=== PATIENT | female | born 1970 | race Caucasian/White ===

== ENCOUNTER 2019-05-10 12:35 | Inpatient (IN) ==
--- NOTE | 2019-05-10 13:14 | XRay Report ---
XR chest 2V PA/lateral HISTORY: 48 years-old Female pain s/p ercp ro perf acute upper abdominal pain status post ERCP COMPARISON: None available TECHNIQUE: PA and lateral views of the chest FINDINGS: Cardiac silhouette is upper limits of normal in size. Opacity of the right cardiophrenic angle sugges ts prominent epicardial fat pad. Postoperative changes of the right upper lung. No pneumothorax, larg e pleural effusion, overt pulmonary edema or focal airspace consolidation. Minimal scarring/atelectas is of the left lung base. The bones appear to be grossly intact. Surgical clips of the upper abdomen suggest cholecystectomy. IMPRESSION: No acute process. The above report was generated using voice recognition software. It may contain grammatical, syntax o r spelling errors. Electronically signed by: Hilario Webb M.D. 05/10/2019 1:12 PM
[2019-05-10] MEDS ORDERED: HYDROmorphone INJ 1 MG/ML SYRINGE IV STA (13:31)
--- NOTE | 2019-05-10 13:47 | XRay Report ---
XR KUB/Abdomen 1 view CLINICAL HISTORY: abdominal pain pain COMPARISON STUDY: No previous studies for comparison. FINDINGS: The soft tissues, psoas shadows, renal outlines and intestinal gas pattern appear normal. T here is no evidence for bowel obstruction. No abnormal abdominal calcifications are seen. IMPRESSION: Normal study. The above report was generated using voice recognition software. It may contain grammatical, syntax or spelling errors. Electronically signed by: Pietro Hansen M.D. 05/10/2019 1:45 PM
[2019-05-10 13:53] LABS: Basophils # (auto) 0.01 K/uL (0-0.2); Basophils % (auto) 0.1 %; Hematocrit (blood only) 39.9 % (37-47); Hemoglobin 13.6 g/dL (12.0-16.0); Immature Granulocytes # (auto) 0.02 K/uL (0.00-0.02); Immature Granulocytes % (auto) 0.2 %; Lymphocytes # (auto) 0.54 K/uL (1.2-3.4); Lymphocytes % (auto) 4.7 %; Mean Corpuscular Hemoglobin 31.1 pg (25-34); Mean Corpuscular Hgb Conc 34.1 g/dL (32-36); Mean Corpuscular Volume 91.3 fL (80-100); Mean Platelet Volume 9.4 fL (7.4-10.4); Monocytes # (auto) 0.18 K/uL (0.11-0.59); Monocytes % (auto) 1.6 %; Neutrophils # (auto) 10.83 K/uL (1.4-6.5); Neutrophils % (auto) 93.4 %; Platelet Count 218 K/uL (130-400); RDW Coefficient of Variation 12.6 % (11.5-14.5); RDW Standard Deviation 42.3 fL (36.4-46.3); Red Blood Count 4.37 M/uL (4.2-5.4); White Blood Count 11.58 K/uL (4.8-10.8)
[2019-05-10] MEDS ORDERED: ONDANSETRON INJ 2 MG/ML 2 ML VIAL IV PRN (14:01)
[2019-05-10 14:07] LABS: Albumin Level 3.6 gm/dl (3.4-5.0); BUN Creatinine Ratio 10.5 (10-20); Creatinine Clr Calc Pharmacy 105.6 ml/min; Est GFR (African American) 109.2; Est GFR (Non-African American) 94.3; Potassium 3.8 mmol/L (3.5-5.1)
--- NOTE | 2019-05-10 14:08 | History & Physical Report ---
Date of Service May 10, 2019 Assessment & Plan (1) S/P ERCP: Maria Esther Youssef is a 48 year old female who on 05/10/19 is s/p Endoscopic retrograde cholangiopancreatography (ERCP) to investigate common bile duct stone as outpatient by Dr. Riaz Hairston at [facility], and because of greater than expect abdominal pain symptoms, the patient was sent to emergency room at [facility]. (2) Abdominal pain: -as per the gastroenterology service Dr. Hairston patient should be on IV fluids of normal saline 150 cc/hr. Avoid lactate ringers solution due to magnesium hydroxide allergy as per Dr. Hairston -trend lipase and liver function enzymes -In the ED. Patient with upper abdominal pain. She reports that that the upper abdominal pain was after the ERCP and that previous to the ERCP the location of the pain was left sided abdomen. In the ED, Chest X ray and KUb were unremarkable. -pain control medications prn -antiemetics prn -will request formal inpatient gastroenterology consult to follow the patient with hospitalist medical service (3) Acquired hypothyroidism: -continue home dose levothyroxine 75 mcg (4) History of sarcoidosis: -diagnosed by surgical lung biopsy 09/22/09 DVT prophylaxis:SCDs My colleague Dr. Banerjee will be taking the patient as hospitalist starting on 05/11/19 History of Present Illness Primary Care Provider: Kalen Thomas PA-C Maria Esther Youssef is a 48 year old female who on 05/10/19 is s/p Endoscopic retrog rade cholangiopancreatography (ERCP) to investigate common bile duct stone as outpatient by Dr. Riaz Hairston at [facility], and because of greater than expect abdominal pain symptoms, the patient was sent to emergency room at [facility]. In the ED. Patient with upper abdominal pain. She reports that that the upper abdominal pain was after the ERCP and that previous to the ERCP the location of the pain was left sided abdomen. In the ED, Chest X ray and KUb were unremarkable. Patient does not have vomiting. Breathing on room air. No chest pain. No dizziness. No headache. No lightheadedness Allergies Allergy/AdvReac Type Severity Reaction Status Date / Time magnesium hydroxide Allergy Unknown swelling Verified 05/10/19 13:55 Home Medications Home Medications Medication Instructions Recorded Confirmed Type dicyclomine 20 mg PO TID PRN 05/10/19 05/10/19 History diphenhydramine HCl [Benadryl] 25 mg PO HS 05/10/19 05/10/19 History levothyroxine 75 mcg PO QAM 05/10/19 05/10/19 History melatonin 10 mg PO HS 05/10/19 05/10/19 History omeprazole 20 mg PO DAILY PRN 05/10/19 05/10/19 History Past Med/Surg History Medical History H/O: hysterectomy Surgical History H/O tubal ligation Social History Feels Safe at Home: Yes Review of Systems Review of Systems: All systems reviewed & are unremarkable except as noted in HPI & below Allergies: Patient reports allergies of magnesium hydroxide that lead to swelling Family History: denies Physical Exam Constitutional: cooperative Eyes: PERRL, conjunctivae normal, anicteric sclerae EOM intact bilaterally ENMT: external ear and nose normal, oropharynx normal Neck: normal visual inspection Respiratory: normal respiratory effort, lungs clear to auscultation Cardiovascular: RRR, no murmur, no edema Gastrointestinal (Abdomen): Inspection/Auscultation: normal bowel sounds Percussion/Palpation: abdomen soft upper epigastric are of pain not made worse by palpation Musculoskeletal: Head/Neck/Chest: normocephalic and head atraumatic Neurologic: PERRL, EOMI, accommodation nl, no face palsy, no dysarthria CN's II-XI intact bilaterally Psychiatric: A+Ox3, euthymic affect Results & Data Vital Signs (Past 12 Hours) Vital Signs Temp Pulse Resp BP Pulse Ox 05/10/19 12:43 36.7 C 75 18 115/55 L 96 Code Status & VTE Plan VTE Prophylaxis Plan VTE Prophylaxis will be ordered: Yes (1) Abdominal pain Abdominal location: upper abdomen, unspecified Qualified Code(s): R10.10 - Upper abdominal pain, unspecified
[2019-05-10 14:11] LABS: Bilirubin Direct 0.5 mg/dl (0-0.2); Bilirubin,Total 0.7 mg/dl (0.2-1); Total Protein 7.2 gm/dl (6.4-8.2)
--- NOTE | 2019-05-10 16:03 | Gastrointestinal Consultation ---
Date of Consultation May 10, 2019 Assessment & Plan (1) Abdominal pain: Abdominal pain may represent IBS or possibly mild post ERCP pancreatitis. IV hydration. Narcotic analgesics. LFTs, lipase tomorrow. Clear liquids po. Present on Admission?: Yes Supervising Physician Co-Signing Physician Notes Attending attestation I have seen, examined this patient, and agree with the findings and above by our mid-level provider RODO Frank, with the following additions -Pain after ERCP -doing well, no acute findings on Xray. -IVF, Pain control History of Present Illness Reason for Consultation: abdominal pain after ERCP Requesting Physician: Dr. Alves Attending Physician: Michael Alves MD History of Present Illness Ms. Maria Esther Youssef is a 48 yr old female with chronic abdominal pain who underwent EUS with findings of sludge in the bile ducts then ERCP today by Dr. Riaz Hairston. Pt tells us that on awakening form the procedure, the "usual" pain was not there (which she says is left mid abdomen), but there was a new epigastric pain. On arrival: KUB and CXR are normal. WBC is mildly elevated at 11, LFTs/lipase are elevated at AST 120, Alt 97, lipase 2210, direct bilirubin 0.5, T bilirubin and alk phos are normal. In the ED she is a bit sleepy from narcotics but is easily arousable and tells us that she is beginning to feel better. On exam, abdomen is soft, mildly tender in the epigastric area. VS are normal w/o tachycardia, hypotension. Allergies Allergy/AdvReac Type Severity Reaction Status Date / Time magnesium hydroxide Allergy Unknown swelling Verified 05/10/19 13:55 Home Medications Home Medications Medication Instructions Recorded Confirmed Type dicyclomine 20 mg PO TID PRN 05/10/19 05/10/19 History diphenhydramine HCl [Benadryl] 25 mg PO HS 05/10/19 05/10/19 History levothyroxine 75 mcg PO QAM 05/10/19 05/10/19 History melatonin 10 mg PO HS 05/10/19 05/10/19 History omeprazole 20 mg PO DAILY PRN 05/10/19 05/10/19 History Patient History Medical History H/O: hysterectomy Surgical History H/O tubal ligation Social History Feels Safe at Home: Yes Review of Systems Review of Systems: ROS: Gen: Denies weakness, fevers, weight loss Eyes: No eye redness, or pain, no recent vision changes Resp: No SOB, no cough Cardio: No palpitations/irregular beats, no chest pain GI: + upper abdominal pain; no nausea/vomiting; denies recent constipation or diarrhea : Denies pain on urination Skin: No jaundice, itching or new rashes Physical Exam Constitutional: WD/WN, vitals as above Eyes: PERRL, conjunctivae normal, anicteric sclerae ENMT: external ear and nose normal, oropharynx normal Neck: trachea midline, no thyromegaly Respiratory: normal respiratory effort, lungs clear to auscultation Cardiovascular: RRR, no murmur, no edema Gastrointestinal (Abdomen): Inspection/Auscultation: + hypoactive bowel sounds (but present) Percussion/Palpation: + abdomen tender (mild, in the epigastric area) and abdomen soft Musculoskeletal: no cyanosis or clubbing, extremities motor strength 5/5 Skin: normal turgor; no jaundice Neurologic: PERRL, EOMI, accommodation nl, no face palsy, no dysarthria Psychiatric: Orientation: oriented x 3 Lymphatic: no cervical or axillary lymphadenopathy Results & Data Vital Signs (Past 12 Hours) Vital Signs Temp Pulse Resp BP BP Pulse Ox 05/10/19 15:21 57 L 18 109/63 96 05/10/19 14:29 16 115/55 L 95 05/10/19 12:43 36.7 C 75 18 115/55 L 96 (1) Abdominal pain Abdominal location: upper abdomen, unspecified Qualified Code(s): R10.10 - Upper abdominal pain, unspecified
[2019-05-10] MEDS: SODIUM CHLORIDE 0.9% 1000ML 1,000 ML IV SCH ×2 (16:16→22:11)
[2019-05-10] MEDS: OXYCODONE HCL IR 5 MG TAB (IMMEDIATE RELEASE) PO PRN (16:23)
[2019-05-10] MEDS: PANTOprazole 40 MG TAB PO SCH (17:01)
--- NOTE | 2019-05-10 18:35 | Emergency Department Note ---
Entered by Deonna Bishop acting as a scribe for History of Present Illness General Chief complaint: Abdominal Pain Time Seen by Provider: 05/10/19 12:42 Source: patient History of Present Illness Onset (ago): hour(s) (just prior to arrival) Location: abdomen (upper) Pain Consistency: + constant Current Pain Intensity: 10 Treatments prior to arrival: other (fentanyl) The patient is a 48 year old female who presents to the Emergency Room with complaints of constant upper abdominal pain that began just prior to arrival. The patient states that she had an ERCP performed this morning, and states that when she woke up after this she had abdominal pain. The patient rates her pain at 10/10. Per nursing staff, the patient had fentanyl for her pain but it did not relieve her symptoms. The patient reports a history of a hysterectomy and tubal ligation. Per charge nurse, Dr. Hairston called in and states that the patient needs to have an abdominal x-ray and, if negative, the patient needs to be admitted by medicine. Home Medications Home Medications Medication Instructions Recorded Confirmed Type dicyclomine 20 mg PO TID PRN 05/10/19 05/10/19 History diphenhydramine HCl [Benadryl] 25 mg PO HS 05/10/19 05/10/19 History levothyroxine 75 mcg PO QAM 05/10/19 05/10/19 History melatonin 10 mg PO HS 05/10/19 05/10/19 History omeprazole 20 mg PO DAILY PRN 05/10/19 05/10/19 History Allergies Allergy/AdvReac Type Severity Reaction Status Date / Time magnesium hydroxide Allergy Unknown swelling Verified 05/10/19 13:55 Past Med/Surg History Medical History H/O: hysterectomy Surgical History H/O tubal ligation Social History Preferred Language: Mexican Communication Ability: Effective 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 and A total of 10 systems reviewed and were otherwise negative Physical Exam Vital Signs Vital Signs - 24 hr 05/10/19 12:43 Temperature 36.7 C Temperature Source Oral Sepsis Recent Fever Within 48 Hours No Sepsis Action Taken by Nursing No Action Required Pulse Rate 75 Pulse Rhythm Regular Pulse Strength Normal Respiratory Rate 18 Respiratory Effort / Characteristics Non-Labored Respiratory Depth Normal Respiratory Pattern Regular Blood Pressure 115/55 L Blood Pressure Mean 75 Blood Pressure Position Lying Pulse Oximetry 96 Oxygen Delivery Method Room Air GENERAL: She is oriented to person, place, and time. She appears well-developed and well-nourished. She does not appear distressed. HENT: Exam performed. - Head: Normocephalic and atraumatic. - Right Ear: External ear normal. No mastoid tenderness. - Left Ear: External ear normal. No mastoid tenderness. - Mouth/Throat: The oropharynx is clear and moist. No trismus in the jaw. No dental abscesses or uvula swelling. No oropharyngeal exudate or tonsillar abscesses. EYES: Conjunctivae and EOM are normal. Pupils are equal, round, and reactive to light. Right eye exhibits no discharge. Left eye exhibits no discharge. No scleral icterus. NECK: Normal range of motion. Neck supple. No JVD present. No spinous process tenderness present. No carotid bruit present. No rigidity. No tracheal deviation and normal range of motion present. No Brudzinski's sign and no Kernig's sign noted. CV: Normal rate, regular rhythm, normal heart sounds and intact distal pulses. There is no peripheral edema. Palpable radial pulses bue. PULM/CHEST: Effort normal and breath sounds normal. No respiratory distress. No stridor. She has no wheezes. She has no rales. Chest Wall: She exhibits no tenderness. ABD: Diffuse pain on palpation of the abdomen. No rigidity. No guarding. The abdomen is soft. Bowel sounds are normal. She has no distension. No mass is present. There is no rebound, no Esquivel's sign and no tenderness at McBurney's point. Rovsig negative MUSC/SKEL: Normal range of motion. There is no peripheral edema, tenderness or deformity. LYMPH: No cervical adenopathy. NEURO: She is alert and oriented to person, place, and time. She has normal strength. No cranial nerve deficit or sensory deficit. Coordination and gait normal. GCS eye subscore is 4. GCS verbal subscore is 5. GCS motor subscore is 6. cerbellar tests wnl. SKIN: Skin is warm and dry. She is not diaphoretic. PSYCH: She has a normal mood and affect. Her behavior is normal. Judgment and thought content normal. Course 1244: Past medical records reviewed. The patient was evaluated in room C12B. A complete history and physical exam was performed. 1334: The patient's vital signs are stable. Imaging showed no free air under the diaphragm and no evidence of perforation. The patient reports that her pain is better status post Dilaudid. Labs show a lipase of 2210. The patient will be further evaluated per the request of GI. I discussed the case with Zayda Vernon PA-C who accepts the patient for further evaluation under Dr. Reid Hospitalist service. Administered Medications Sodium Chloride (Nss 1000ml) 1,000 mls @ 150 mls/hr IV .[id number] [facility] Stop: 06/09/19 13:59 Last Admin: 05/10/19 16:16 Dose: 150 mls/hr Documented by: [id number] Oxycodone HCl (Roxicodone Immediate Rel) 5 mg PO Q6H PRN PRN Reason: Moderate Pain Stop: 05/24/19 13:58 Last Admin: 05/10/19 16:23 Dose: 5 mg Documented by: [id number] Pantoprazole Sodium (Protonix) 40 mg PO QAM [facility] Stop: 06/09/19 08:59 Last Admin: 05/10/19 17:01 Dose: 40 mg Documented by: [id number] Discontinued Medications Hydromorphone HCl (Dilaudid) 1 mg IV NOW STA Stop: 05/10/19 13:32 Last Admin: 05/10/19 13:39 Dose: 1 mg Documented by: [id number] Ondansetron HCl (Zofran) 4 mg IV Q6H PRN PRN Reason: Nausea Stop: 06/09/19 14:00 Last Admin: 05/10/19 16:23 Dose: 4 mg Documented by: [id number] Medical Decision Making Medical Records Attestation: I reviewed the patient's medical records. Home Medications Current Medication List: was personally reviewed by me Laboratory Data Attestation: I reviewed the patient's lab results. Result diagrams: 05/10/19 13:38 05/10/19 13:38 Lab Results 05/10/19 05/10/19 Range/Units 13:38 13:38 WBC 11.58 H (4.8-10.8) K/uL RBC 4.37 (4.2-5.4) M/uL Hgb 13.6 (12.0-16.0) g/dL Hct 39.9 (37-47) % MCV 91.3 (80-100) fL MCH 31.1 (25-34) pg MCHC 34.1 (32-36) g/dL RDW Std Deviation 42.3 (36.4-46.3) fL RDW Coeff of Paulo 12.6 (11.5-14.5) % Plt Count 218 (130-400) K/uL MPV 9.4 (7.4-10.4) fL Immature Gran % (Auto) 0.2 % Neut % (Auto) 93.4 % Lymph % (Auto) 4.7 % [place] % (Auto) 1.6 % Eos % (Auto) 0.0 % Baso % (Auto) 0.1 % Immature Gran # (Auto) 0.02 (0.00-0.02) K/uL Neut # (Auto) 10.83 H (1.4-6.5) K/uL Lymph # (Auto) 0.54 L (1.2-3.4) K/uL [place] # (Auto) 0.18 (0.11-0.59) K/uL Eos # (Auto) 0.00 (0-0.5) K/uL Baso # (Auto) 0.01 (0-0.2) K/uL Sodium 138 (136-145) mmol/L Potassium 3.8 (3.5-5.1) mmol/L Chloride 106 (98-107) mmol/L Carbon Dioxide 25 (21-32) mmol/L Anion Gap 7.0 (3-11) BUN 8 (7-18) mg/dl Creatinine 0.75 (0.6-1.2) mg/dl Est Cr Clr Drug Dosing 105.6 ml/min Est GFR ( Amer) 109.2 Est GFR (Non-Af Amer) 94.3 BUN/Creatinine Ratio 10.5 (10-20) Glucose 171 H (70-99) mg/dl Calcium 8.0 L (8.5-10.1) mg/dl Total Bilirubin 0.7 (0.2-1) mg/dl Direct Bilirubin 0.5 H (0-0.2) mg/dl AST 120 H (15-37) U/L ALT 97 H (12-78) U/L Alkaline Phosphatase 81 (45-117) U/L Total Protein 7.2 (6.4-8.2) gm/dl Albumin 3.6 (3.4-5.0) gm/dl Lipase 2210 H (73-393) U/L Imaging Data Radiologist's Impression: Radiology results as stated below per my review and the radiologist's interpretation: XR chest 2V PA/lateral HISTORY: 48 years-old Female pain s/p ercp ro perf acute upper abdominal pain status post ERCP COMPARISON: None available TECHNIQUE: PA and lateral views of the chest FINDINGS: Cardiac silhouette is upper limits of normal in size. Opacity of the right cardiophrenic angle suggests prominent epicardial fat pad. Postoperative changes of the right upper lung. No pneumothorax, large pleural effusion, overt pulmonary edema or focal airspace consolidation. Minimal scarring/atelectasis of the left lung base. The bones appear to be grossly intact. Surgical clips of the upper abdomen suggest cholecystectomy. IMPRESSION: No acute process. The above report was generated using voice recognition software. It may contain grammatical, syntax or spelling errors. Electronically signed by: Hilario Webb M.D. 05/10/2019 1:12 PM XR KUB/Abdomen 1 view CLINICAL HISTORY: abdominal pain pain COMPARISON STUDY: No previous studies for comparison. FINDINGS: The soft tissues, psoas shadows, renal outlines and intestinal gas pattern appear normal. There is no evidence for bowel obstruction. No abnormal abdominal calcifications are seen. IMPRESSION: Normal study. The above report was generated using voice recognition software. It may contain grammatical, syntax or spelling errors. Electronically signed by: Pietro Hansen M.D. 05/10/2019 1:45 PM Blood Pressure Blood Pressure Findings: Normal blood pressure MDM Narrative The patient's vital signs are stable. Imaging showed no free air under the diaphragm and no evidence of perforation. The patient reports that her pain is better status post Dilaudid. Labs show a lipase of 2210. The patient will be further evaluated per the request of GI. I discussed the case with Zayda Vernon PA-C who accepts the patient for further evaluation under Dr. Reid Hospitalist service. Impression & Plan Abdominal pain, Pancreatitis Discharge Plan Visit Data *Final* Discharge Date/Time: 05/10/19 15:21 Chief Complaint: Abdominal Pain ED Provider: Semaj Bishop Discharge Problem: Abdominal pain, Pancreatitis Patient Disposition: Admitted As Inpatient Discharge Instructions Interventions: ED Discharge Assessment Last Done: 05/10/19 15:21 Discharge Problem: Abdominal pain Qualifiers: Abdominal location: upper abdomen, unspecified Qualified Code(s): R10.10 - Upper abdominal pain, unspecified Pancreatitis Qualifiers: Chronicity: acute Pancreatitis type: unspecified pancreatitis type Acute pancreatitis complication: unspecified Qualified Code(s): K85.90 - Acute pancreatitis without necrosis or infection, unspecified The scribe's documentation has been prepared under my direction and personally reviewed by me in its entirety. I confirm that the note above accurately refl ects all work, treatment, procedures, and medical decision making performed by me.
[2019-05-10] MEDS: METOCLOPRAMIDE HCL INJ 5 MG/ML 2 ML VIAL IV PRN (18:41)
[2019-05-10] MEDS: HYDROmorphone INJ 0.5 MG/0.5 ML SYR IV PRN (18:44)
[2019-05-10] MEDS: ACETAMINOPHEN 325 MG TAB PO PRN (19:55)
[2019-05-11] MEDS: OXYCODONE HCL IR 5 MG TAB (IMMEDIATE RELEASE) PO PRN ×4 (00:16→22:35)
[2019-05-11] MEDS: SODIUM CHLORIDE 0.9% 1000ML 1,000 ML IV SCH ×4 (04:34→22:36)
[2019-05-11] MEDS: LEVOTHYROXINE SODIUM 75 MCG TABLET PO SCH (05:16)
[2019-05-11 05:38] LABS: Eosinophils # (auto) 0.01 K/uL (0-0.5); Eosinophils % (auto) 0.1 %; Hematocrit (blood only) 37.7 % (37-47); Hemoglobin 12.7 g/dL (12.0-16.0); Immature Granulocytes # (auto) 0.01 K/uL (0.00-0.02); Immature Granulocytes % (auto) 0.1 %; Lymphocytes # (auto) 0.92 K/uL (1.2-3.4); Lymphocytes % (auto) 8.8 %; Mean Corpuscular Hemoglobin 31.1 pg (25-34); Mean Corpuscular Hgb Conc 33.7 g/dL (32-36); Mean Corpuscular Volume 92.4 fL (80-100); Mean Platelet Volume 9.5 fL (7.4-10.4); Monocytes # (auto) 0.99 K/uL (0.11-0.59); Monocytes % (auto) 9.4 %; Neutrophils # (auto) 8.58 K/uL (1.4-6.5); Neutrophils % (auto) 81.6 %; Platelet Count 228 K/uL (130-400); RDW Coefficient of Variation 12.7 % (11.5-14.5); Red Blood Count 4.08 M/uL (4.2-5.4); White Blood Count 10.51 K/uL (4.8-10.8)
[2019-05-11 06:22] LABS: Albumin Level 3.2 gm/dl (3.4-5.0); BUN Creatinine Ratio 11.1 (10-20); Creatinine Clr Calc Pharmacy 106.1 ml/min; Est GFR (Non-African American) 95.8
[2019-05-11 06:25] LABS: Albumin Globulin Ratio 0.9 (0.9-2); Bilirubin,Total 0.7 mg/dl (0.2-1); Globulin 3.5 gm/dl (2.5-4.0); Total Protein 6.7 gm/dl (6.4-8.2)
[2019-05-11] MEDS: PANTOprazole 40 MG TAB PO SCH (08:46)
[2019-05-11] MEDS: HYDROmorphone INJ 0.5 MG/0.5 ML SYR IV PRN ×2 (08:53→21:32)
[2019-05-11] MEDS: METOCLOPRAMIDE HCL INJ 5 MG/ML 2 ML VIAL IV PRN ×2 (08:53→21:32)
--- NOTE | 2019-05-11 10:00 | Gastroenterology Progress Note ---
Date of Service May 11, 2019 Assessment & Plan (1) Pancreatitis: Patient with post ERCP pancreatitis. Given her symptoms I would suggest that we continue with IV hydration at 150 mL an hour. I would hold on any meal although the patient can have sips and ice chips for the present time. Recommendations Continue with IV hydration at 150 mL/h May have sips and ice chips otherwise n.p.o. Subjective The patient notes that her abdominal discomfort is starting to remit significantly. She did have a complicated ERCP yesterday for choledocholithiasis. Review of Systems Constitutional: no sweats Eyes: no diplopia Respiratory: no change in sputum Cardiovascular: no chest pain with activity Physical Exam Constitutional: WD/WN, vitals as above Eyes: no scleral abnormality Respiratory: normal respiratory effort, lungs clear to auscultation Cardiovascular: Rate/Rhythm: regular rate Gastrointestinal (Abdomen): Inspection/Auscultation: abdomen not distended Percussion/Palpation: + abdomen tender Results & Data Vital Signs (Past 12 Hours) Vital Signs Temp Pulse Resp BP BP Pulse Ox 05/11/19 07:12 36.8 C 94 H 19 103/65 97 05/10/19 23:06 36.7 C 53 L 16 113/66 95 Laboratory Results Laboratory Results - last 24 hr 05/10/19 05/10/19 05/11/19 13:38 13:38 05:04 WBC 11.58 H 10.51 RBC 4.37 4.08 L Hgb 13.6 12.7 Hct 39.9 37.7 MCV 91.3 92.4 MCH 31.1 31.1 MCHC 34.1 33.7 RDW Std Deviation 42.3 43.0 RDW Coeff of Paulo 12.6 12.7 Plt Count 218 228 MPV 9.4 9.5 Immature Gran % (Auto) 0.2 0.1 Neut % (Auto) 93.4 81.6 Lymph % (Auto) 4.7 8.8 [place] % (Auto) 1.6 9.4 Eos % (Auto) 0.0 0.1 Baso % (Auto) 0.1 0.0 Immature Gran # (Auto) 0.02 0.01 Neut # (Auto) 10.83 H 8.58 H Lymph # (Auto) 0.54 L 0.92 L [place] # (Auto) 0.18 0.99 H Eos # (Auto) 0.00 0.01 Baso # (Auto) 0.01 0.00 Sodium 138 Potassium 3.8 Chloride 106 Carbon Dioxide 25 Anion Gap 7.0 BUN 8 Creatinine 0.75 Est Cr Clr Drug Dosing 105.6 Est GFR ( Amer) 109.2 Est GFR (Non-Af Amer) 94.3 BUN/Creatinine Ratio 10.5 Glucose 171 H Calcium 8.0 L Total Bilirubin 0.7 Direct Bilirubin 0.5 H AST 120 H ALT 97 H Alkaline Phosphatase 81 Total Protein 7.2 Albumin 3.6 Globulin Albumin/Globulin Ratio Lipase 2210 H 05/11/19 05:04 WBC RBC Hgb Hct MCV MCH MCHC RDW Std Deviation RDW Coeff of Paulo Plt Count MPV Immature Gran % (Auto) Neut % (Auto) Lymph % (Auto) [place] % (Auto) Eos % (Auto) Baso % (Auto) Immature Gran # (Auto) Neut # (Auto) Lymph # (Auto) [place] # (Auto) Eos # (Auto) Baso # (Auto) Sodium 137 Potassium 4.0 Chloride 104 Carbon Dioxide 26 Anion Gap 7.0 BUN 8 Creatinine 0.74 Est Cr Clr Drug Dosing 106.1 Est GFR ( Amer) 111.0 Est GFR (Non-Af Amer) 95.8 BUN/Creatinine Ratio 11.1 Glucose 119 H Calcium 8.0 L Total Bilirubin 0.7 Direct Bilirubin AST 223 H ALT 318 H Alkaline Phosphatase 102 Total Protein 6.7 Albumin 3.2 L Globulin 3.5 Albumin/Globulin Ratio 0.9 Lipase 6761 H (1) Pancreatitis Acute pancreatitis complication: unspecified Chronicity: acute Pancreatitis type: unspecified pancreatitis type Qualified Code(s): K85.90 - Acute pancreatitis without necrosis or infection, unspecified
[2019-05-11 12:54] LABS: Albumin Level 3.3 gm/dl (3.4-5.0); BUN Creatinine Ratio 12.9 (10-20); Calcium 8.3 mg/dl (8.5-10.1); Creatinine Clr Calc Pharmacy 112.2 ml/min; Est GFR (African American) 118.7; Est GFR (Non-African American) 102.5; Potassium 3.8 mmol/L (3.5-5.1)
[2019-05-11 12:55] LABS: Albumin Globulin Ratio 1.1 (0.9-2); Bilirubin,Total 0.5 mg/dl (0.2-1); Total Protein 6.3 gm/dl (6.4-8.2)
--- NOTE | 2019-05-11 14:20 | Hospitalist Progress Note ---
Date of Service May 11, 2019 Assessment & Plan (1) Abdominal pain: (2) S/P ERCP: (3) Elevated LFTs: (4) Post-ERCP acute pancreatitis: Abdominal pain post ERCP for stone removal Stone removed during ERCP. No stent deployed per ERCP report Lipase was 2210 yesterday and 6761 this AM Keep clears for now Continue IVF at 150cc/h Monitor electrolytes Monitor urine output Elevated LFT post ERCP with stone removal. Will continue to monitor LFT GI on board (5) Acquired hypothyroidism: Continue home dose levothyroxine 75 mcg Tolerating pill well. If not tolerating, will change to iv (6) History of sarcoidosis: Diagnosed by surgical lung biopsy 09/22/09 DVT prophylaxis:SCDs Subjective Patient seen and examined. She reports dull epigastric pain, 12/17, not referred, intermittent improvement with dilaudid. Occasional nausea. Had vomiting after lunch with broth. Tolerates water without problems Denied any fevers, chills, dizziness Passes flatus. No bowel movement yet. Review of Systems Review of Systems: All systems reviewed and unremarkable except for mentioned above. Physical Exam Constitutional: well developed and well nourished; no acute distress Eyes: PERRL, conjunctivae normal, anicteric sclerae ENMT: external ear and nose normal, oropharynx normal Neck: trachea midline, no thyromegaly Respiratory: normal respiratory effort, lungs clear to auscultation Cardiovascular: RRR, no murmur, no edema Heart Sounds: normal S1 and normal S2 Gastrointestinal (Abdomen): Inspection/Auscultation: abdomen normal to inspection and normal bowel sounds; abdomen not distended Percussion/Palpation: + abdomen tender (Epigastrium) and abdomen soft; no guarding, abdomen not rigid, no hepatosplenomegaly and no ascites Musculoskeletal: no cyanosis or clubbing, extremities motor strength 5/5 Neurologic: PERRL, EOMI, accommodation nl, no face palsy, no dysarthria Psychiatric: A+Ox3, euthymic affect Results & Data Vital Signs (Past 12 Hours) Vital Signs Temp Pulse Resp BP Pulse Ox 05/11/19 07:12 36.8 C 94 H 19 103/65 97 Laboratory Results Short CBC 05/11/19 Range/Units 05:04 WBC 10.51 (4.8-10.8) K/uL Hgb 12.7 (12.0-16.0) g/dL Hct 37.7 (37-47) % Plt Count 228 (130-400) K/uL BMP 05/11/19 05/11/19 05:04 12:14 Sodium 137 138 Potassium 4.0 3.8 Chloride 104 106 Carbon Dioxide 26 26 BUN 8 9 Creatinine 0.74 0.70 Glucose 119 H 113 H Calcium 8.0 L 8.3 L Liver Function 05/11/19 05/11/19 Range/Units 05:04 12:14 Total Bilirubin 0.7 0.5 (0.2-1) mg/dl AST 223 H 128 H (15-37) U/L ALT 318 H 257 H (12-78) U/L Alkaline Phosphatase 102 90 (45-117) U/L Albumin 3.2 L 3.3 L (3.4-5.0) gm/dl (1) Abdominal pain Abdominal location: upper abdomen, unspecified Qualified Code(s): R10.10 - Upper abdominal pain, unspecified
[2019-05-12] MEDS: SODIUM CHLORIDE 0.9% 1000ML 1,000 ML IV SCH ×3 (03:34→22:04)
[2019-05-12] MEDS: OXYCODONE HCL IR 5 MG TAB (IMMEDIATE RELEASE) PO PRN ×3 (03:39→19:17)
[2019-05-12] MEDS: LEVOTHYROXINE SODIUM 75 MCG TABLET PO SCH (05:51)
[2019-05-12 06:14] LABS: Hematocrit (blood only) 33.7 % (37-47); Hemoglobin 11.3 g/dL (12.0-16.0); Mean Corpuscular Hemoglobin 31.5 pg (25-34); Mean Corpuscular Hgb Conc 33.5 g/dL (32-36); Mean Corpuscular Volume 93.9 fL (80-100); Mean Platelet Volume 9.7 fL (7.4-10.4); Platelet Count 188 K/uL (130-400); RDW Coefficient of Variation 13.1 % (11.5-14.5); RDW Standard Deviation 45.4 fL (36.4-46.3); Red Blood Count 3.59 M/uL (4.2-5.4); White Blood Count 10.24 K/uL (4.8-10.8)
[2019-05-12 06:58] LABS: Calcium 7.7 mg/dl (8.5-10.1); Creatinine Clr Calc Pharmacy 142.8 ml/min; Est GFR (African American) 128.6; Est GFR (Non-African American) 110.9; Potassium 3.3 mmol/L (3.5-5.1)
[2019-05-12 07:01] LABS: Albumin Globulin Ratio 0.9 (0.9-2); Bilirubin,Total 0.5 mg/dl (0.2-1); Globulin 3.2 gm/dl (2.5-4.0); Total Protein 6.2 gm/dl (6.4-8.2)
[2019-05-12] MEDS: PANTOprazole 40 MG TAB PO SCH (08:17)
--- NOTE | 2019-05-12 09:58 | Gastroenterology Progress Note ---
Date of Service May 12, 2019 Assessment & Plan (1) Post-ERCP acute pancreatitis: Patient with post-ercp pancreatitis, much improved this am wiht improved labs. Reccomendations Clear liquid diet today reduce IVF to 100 ml / hour Subjective Patient notes feeling somewhat improved today, much less abdominal, was given clear liquids by the hospitalist service yesterday evening which was well tolerated. Review of Systems Constitutional: + malaise; no sweats Eyes: no diplopia Respiratory: no change in sputum and no hemoptysis Cardiovascular: no chest pain with activity Gastrointestinal: no nausea and no vomiting Physical Exam Constitutional: well developed and well nourished; not ill appearing Respiratory: normal respiratory effort; no respiratory distress Cardiovascular: Rate/Rhythm: regular rhythm Gastrointestinal (Abdomen): Inspection/Auscultation: abdomen not distended Percussion/Palpation: + abdomen tender and abdomen soft mild tenderness, improved from Monday. Results & Data Vital Signs (Past 12 Hours) Vital Signs Temp Pulse Resp BP Pulse Ox 05/12/19 07:14 36.6 C 91 H 18 121/66 94 05/11/19 23:11 37.5 C 79 16 115/66 92 Laboratory Results Laboratory Results - last 24 hr 05/11/19 05/12/19 05/12/19 12:14 05:07 05:07 WBC 10.24 RBC 3.59 L Hgb 11.3 L Hct 33.7 L MCV 93.9 MCH 31.5 MCHC 33.5 RDW Std Deviation 45.4 RDW Coeff of Paulo 13.1 Plt Count 188 MPV 9.7 Sodium 138 138 Potassium 3.8 3.3 L Chloride 106 106 Carbon Dioxide 26 27 Anion Gap 6.0 5.0 BUN 9 9 Creatinine 0.70 0.55 L Est Cr Clr Drug Dosing 112.2 142.8 Est GFR ( Amer) 118.7 128.6 Est GFR (Non-Af Amer) 102.5 110.9 BUN/Creatinine Ratio 12.9 16.0 Glucose 113 H 93 Calcium 8.3 L 7.7 L Total Bilirubin 0.5 0.5 AST 128 H 64 H ALT 257 H 193 H Alkaline Phosphatase 90 87 Total Protein 6.3 L 6.2 L Albumin 3.3 L 3.0 L Globulin 3.0 3.2 Albumin/Globulin Ratio 1.1 0.9 Lipase 05/12/19 05:07 WBC RBC Hgb Hct MCV MCH MCHC RDW Std Deviation RDW Coeff of Paulo Plt Count MPV Sodium Potassium Chloride Carbon Dioxide Anion Gap BUN Creatinine Est Cr Clr Drug Dosing Est GFR ( Amer) Est GFR (Non-Af Amer) BUN/Creatinine Ratio Glucose Calcium Total Bilirubin AST ALT Alkaline Phosphatase Total Protein Albumin Globulin Albumin/Globulin Ratio Lipase 843 H
--- NOTE | 2019-05-12 16:09 | Hospitalist Progress Note ---
Date of Service May 12, 2019 Assessment & Plan (1) Abdominal pain: (2) S/P ERCP: (3) Elevated LFTs: (4) Post-ERCP acute pancreatitis: Abdominal pain post ERCP for stone removal Stone removed during ERCP. No stent deployed per ERCP report Lipase was 2210 on admission and 6761 yesterday Tolerating clears well IVF reduced to 100cc/h Continue to monitor electrolytes and urine output Monitor urine output Elevated LFT trending down GI on board (5) Acquired hypothyroidism: Continue home dose levothyroxine 75 mcg (6) History of sarcoidosis: Diagnosed by surgical lung biopsy 09/22/09 DVT prophylaxis:SCDs Subjective Patient seen and examined. Pain is still present but much improved since admission Tolerating clears well since yesterday No more nausea/vomiting Denied fevers, chills Review of Systems Review of Systems: All systems reviewed and unremarkable except for mentioned above. Physical Exam Constitutional: well developed and well nourished Eyes: PERRL, conjunctivae normal, anicteric sclerae ENMT: external ear and nose normal, oropharynx normal Respiratory: normal respiratory effort, lungs clear to auscultation Cardiovascular: RRR, no murmur, no edema Heart Sounds: normal S1 and normal S2 Gastrointestinal (Abdomen): normal bowel sounds, soft, nontender, no hepatosplenomegaly Neurologic: PERRL, EOMI, accommodation nl, no face palsy, no dysarthria Psychiatric: A+Ox3, euthymic affect Results & Data Vital Signs (Past 12 Hours) Vital Signs Temp Pulse Resp BP BP Pulse Ox 05/12/19 15:18 37.5 C 82 17 111/70 97 05/12/19 07:14 36.6 C 91 H 18 121/66 94 Laboratory Results Short CBC 05/12/19 Range/Units 05:07 WBC 10.24 (4.8-10.8) K/uL Hgb 11.3 L (12.0-16.0) g/dL Hct 33.7 L (37-47) % Plt Count 188 (130-400) K/uL BMP 05/12/19 05:07 Sodium 138 Potassium 3.3 L Chloride 106 Carbon Dioxide 27 BUN 9 Creatinine 0.55 L Glucose 93 Calcium 7.7 L Liver Function 05/12/19 Range/Units 05:07 Total Bilirubin 0.5 (0.2-1) mg/dl AST 64 H (15-37) U/L ALT 193 H (12-78) U/L Alkaline Phosphatase 87 (45-117) U/L Albumin 3.0 L (3.4-5.0) gm/dl (1) Abdominal pain Abdominal location: upper abdomen, unspecified Qualified Code(s): R10.10 - Upper abdominal pain, unspecified
[2019-05-12] MEDS: HYDROmorphone INJ 0.5 MG/0.5 ML SYR IV PRN (22:02)
[2019-05-13 05:36] LABS: Hematocrit (blood only) 36.1 % (37-47); Mean Corpuscular Hemoglobin 30.6 pg (25-34); Mean Corpuscular Hgb Conc 33.2 g/dL (32-36); Mean Corpuscular Volume 92.1 fL (80-100); Mean Platelet Volume 9.6 fL (7.4-10.4); Platelet Count 200 K/uL (130-400); RDW Coefficient of Variation 12.9 % (11.5-14.5); RDW Standard Deviation 43.3 fL (36.4-46.3); Red Blood Count 3.92 M/uL (4.2-5.4); White Blood Count 10.01 K/uL (4.8-10.8)
[2019-05-13] MEDS: OXYCODONE HCL IR 5 MG TAB (IMMEDIATE RELEASE) PO PRN ×4 (05:39→23:19)
[2019-05-13] MEDS: ACETAMINOPHEN 325 MG TAB PO PRN ×2 (05:39→23:20)
[2019-05-13] MEDS: LEVOTHYROXINE SODIUM 75 MCG TABLET PO SCH (05:39)
[2019-05-13 06:08] LABS: Albumin Level 3.2 gm/dl (3.4-5.0); BUN Creatinine Ratio 6.7 (10-20); Calcium 8.5 mg/dl (8.5-10.1); Creatinine Clr Calc Pharmacy 128.7 ml/min; Est GFR (African American) 124.2; Est GFR (Non-African American) 107.2; Potassium 3.1 mmol/L (3.5-5.1)
[2019-05-13 06:11] LABS: Albumin Globulin Ratio 0.9 (0.9-2); Bilirubin,Total 0.9 mg/dl (0.2-1); Globulin 3.7 gm/dl (2.5-4.0); Total Protein 6.9 gm/dl (6.4-8.2)
[2019-05-13] MEDS: SODIUM CHLORIDE 0.9% 1000ML 1,000 ML IV SCH ×2 (07:42→16:58)
[2019-05-13] MEDS: PANTOprazole 40 MG TAB PO SCH (07:42)
[2019-05-13] MEDS ORDERED: POTASSIUM CHLORIDE 20 MEQ TABCR PO STA (10:36)
--- NOTE | 2019-05-13 11:15 | Hospitalist Progress Note ---
Date of Service May 13, 2019 Assessment & Plan (1) Abdominal pain: (2) S/P ERCP: (3) Elevated LFTs: (4) Post-ERCP acute pancreatitis: Abdominal pain post ERCP for stone removal Stone removed during ERCP. No stent deployed per ERCP report Lipase was 2210 on admission and went up to 6761 Tolerating clears well. Will advance diet today If tolerating diet well and oral intake will wean off ivf Monitor urine output Elevated LFT continue to trend down GI on board (5) Hypokalemia: Hypokalemia K 3.1 today. Repletion ordered Continue to monitor electrolytes (6) Acquired hypothyroidism: Continue home dose levothyroxine 75 mcg (7) History of sarcoidosis: Diagnosed by surgical lung biopsy 09/22/09 DVT prophylaxis:SCDs Subjective Patient seen and examined. She still reports mild to moderate epigastric pain. Pain continues to improve. No nausea or vomiting for over 24h now. Denied fevers, chills Yet to move her bowel but passing flatus Review of Systems Review of Systems: All systems reviewed and unremarkable except for mentioned above. Physical Exam Constitutional: well developed and well nourished; no acute distress Eyes: PERRL, conjunctivae normal, anicteric sclerae ENMT: external ear and nose normal, oropharynx normal Neck: trachea midline Respiratory: normal respiratory effort, lungs clear to auscultation Cardiovascular: RRR, no murmur, no edema Heart Sounds: normal S1 and normal S2 Gastrointestinal (Abdomen): Inspection/Auscultation: abdomen normal to inspection and normal bowel sounds; abdomen not distended Percussion/Palpation: + abdomen tender (Epigastrium, mild tenderness) and abdomen soft; no guarding, abdomen not rigid and no hepatosplenomegaly Musculoskeletal: no cyanosis or clubbing, extremities motor strength 5/5 Neurologic: PERRL, EOMI, accommodation nl, no face palsy, no dysarthria Psychiatric: A+Ox3, euthymic affect Results & Data Vital Signs (Past 12 Hours) Vital Signs Temp Pulse Resp BP BP Pulse Ox 05/13/19 07:14 36.9 C 80 16 119/64 96 05/12/19 23:26 37.3 C 86 16 118/66 96 (1) Abdominal pain Abdominal location: upper abdomen, unspecified Qualified Code(s): R10.10 - Upper abdominal pain, unspecified
[2019-05-13] MEDS: HYDROmorphone INJ 0.5 MG/0.5 ML SYR IV PRN ×2 (12:04→20:07)
[2019-05-13] MEDS: METOCLOPRAMIDE HCL INJ 5 MG/ML 2 ML VIAL IV PRN (13:02)
[2019-05-14] MEDS: SODIUM CHLORIDE 0.9% 1000ML 1,000 ML IV SCH ×3 (03:00→22:38)
[2019-05-14] MEDS: HYDROmorphone INJ 0.5 MG/0.5 ML SYR IV PRN ×3 (03:00→19:05)
[2019-05-14 06:01] LABS: Albumin Level 2.9 gm/dl (3.4-5.0); BUN Creatinine Ratio 8.7 (10-20); Calcium 8.6 mg/dl (8.5-10.1); Creatinine Clr Calc Pharmacy 170.7 ml/min; Est GFR (African American) 136.3; Est GFR (Non-African American) 117.6; Potassium 3.5 mmol/L (3.5-5.1)
[2019-05-14 06:03] LABS: Albumin Globulin Ratio 0.7 (0.9-2); Bilirubin,Total 0.6 mg/dl (0.2-1); Globulin 4.1 gm/dl (2.5-4.0)
[2019-05-14] MEDS: LEVOTHYROXINE SODIUM 75 MCG TABLET PO SCH (06:15)
[2019-05-14] MEDS: OXYCODONE HCL IR 5 MG TAB (IMMEDIATE RELEASE) PO PRN ×3 (06:15→22:41)
[2019-05-14] MEDS: ACETAMINOPHEN 325 MG TAB PO PRN ×2 (06:15→17:49)
[2019-05-14] MEDS: PANTOprazole 40 MG TAB PO SCH (08:21)
--- NOTE | 2019-05-14 18:01 | Hospitalist Progress Note ---
Date of Service May 14, 2019 Assessment & Plan (1) Abdominal pain: (2) S/P ERCP: (3) Elevated LFTs: (4) Post-ERCP acute pancreatitis: Was sent from GI after developing severe abdominal pain post Endoscopic retrograde cholangiopancreatography (ERCP) to investigate common bile duct stone as outpatient by Dr. Riaz Hairston Stone removed during ERCP. No stent deployed per ERCP report Lipase was 2210 on admission, then increased to 6761, dropped to 800's Liver enzymes continue to trend down Continue IVF Pain slightly increased after diet advanced to regular Will change diet to full liquid Continue pain control (5) Hypokalemia: K 3.5 today Continue to monitor electrolytes Stable (6) Acquired hypothyroidism: Continue home dose levothyroxine 75 mcg (7) History of sarcoidosis: Diagnosed by surgical lung biopsy 09/22/09 DVT prophylaxis:SCDs Disposition Will discharge once medically stable Subjective Pt was seen and examined. Lying in bed with no distress Pt said that she continues to have tenderness in her mid abdomen She said that pain seems to worsening when her diet advanced to regular She said that the pain medication seems to help Her last BM was last night Denies any chest pain, palpitation, dizziness and SOB Physical Exam Physical Exam: General- No acute distress Head- atraumatic Eyes- PERRL, EOMI, ENT- oropharynx clear Neck- supple, no JVD Lungs- clear to auscultation Heart- regular rhythm; no murmur Abdomen- normal bowel sounds, +tender Extremities- no calf tenderness Neuro- alert, oriented x 3; PERRL, EOMI; no facial palsy; no dysarthria Skin- warm & dry Results & Data Vital Signs (Past 12 Hours) Vital Signs Temp Pulse Pulse Resp BP BP Pulse Ox 05/14/19 17:47 37.5 C 68 16 147/71 H 99 05/14/19 15:06 37.3 C 69 18 126/75 98 05/14/19 07:27 36.8 C 85 18 102/63 93 (1) Abdominal pain Abdominal location: upper abdomen, unspecified Qualified Code(s): R10.10 - Upper abdominal pain, unspecified
[2019-05-15] MEDS ORDERED: MoRPHine SULFATE 4 MG/ML 1 ML CARP\\VIAL IV STA (00:55)
[2019-05-15] MEDS: OXYCODONE HCL IR 5 MG TAB (IMMEDIATE RELEASE) PO PRN ×3 (05:20→23:19)
[2019-05-15] MEDS: LEVOTHYROXINE SODIUM 75 MCG TABLET PO SCH (05:55)
[2019-05-15 06:14] LABS: Albumin Level 2.8 gm/dl (3.4-5.0); BUN Creatinine Ratio 6.7 (10-20); Calcium 8.7 mg/dl (8.5-10.1); Creatinine Clr Calc Pharmacy 145.4 ml/min; Est GFR (African American) 129.3; Est GFR (Non-African American) 111.6; Potassium 3.7 mmol/L (3.5-5.1)
[2019-05-15 06:16] LABS: Albumin Globulin Ratio 0.8 (0.9-2); Bilirubin,Total 0.5 mg/dl (0.2-1); Globulin 3.7 gm/dl (2.5-4.0); Total Protein 6.5 gm/dl (6.4-8.2)
[2019-05-15] MEDS: ACETAMINOPHEN 325 MG TAB PO PRN ×3 (07:48→23:19)
[2019-05-15] MEDS: PANTOprazole 40 MG TAB PO SCH (08:46)
[2019-05-15] MEDS: SODIUM CHLORIDE 0.9% 1000ML 1,000 ML IV SCH ×2 (08:46→18:37)
[2019-05-15] MEDS: HYDROmorphone INJ 0.5 MG/0.5 ML SYR IV PRN ×2 (09:40→18:32)
--- NOTE | 2019-05-15 19:28 | Hospitalist Progress Note ---
Date of Service May 15, 2019 Assessment & Plan (1) Abdominal pain: (2) S/P ERCP: (3) Elevated LFTs: (4) Post-ERCP acute pancreatitis: Was sent from GI after developing severe abdominal pain post Endoscopic retrograde cholangiopancreatography (ERCP) to investigate common bile duct stone as outpatient by Dr. Riaz Hairston Stone removed during ERCP. No stent deployed per ERCP report Lipase was 2210 on admission, then increased to 6761, dropped to 800's Liver enzymes continue to trend down Continue IVF Continue full liquid diet, and advanced as tolerated Will change diet to full liquid Continue pain control (5) Hypokalemia: K 3.7 today Continue to monitor electrolytes Stable (6) Acquired hypothyroidism: Continue home dose levothyroxine 75 mcg (7) History of sarcoidosis: Diagnosed by surgical lung biopsy 09/22/09 DVT prophylaxis:SCDs Disposition Will discharge once medically stable Subjective Pt was seen and examined Lying in bed with no distress Continue to have pain She said that the pain med helps Physical Exam Physical Exam: General- No acute distress Head- atraumatic Eyes- PERRL, EOMI, ENT- oropharynx clear Neck- supple, no JVD Lungs- clear to auscultation Heart- regular rhythm; no murmur Abdomen- normal bowel sounds, +tender Extremities- no calf tenderness Neuro- alert, oriented x 3; PERRL, EOMI; no facial palsy; no dysarthria Skin- warm & dry Results & Data Vital Signs (Past 12 Hours) Vital Signs Temp Pulse Resp BP Pulse Ox 05/15/19 14:57 37.2 C 67 18 124/74 100 05/15/19 07:58 37.1 C 78 16 116/73 99 (1) Abdominal pain Abdominal location: upper abdomen, unspecified Qualified Code(s): R10.10 - Upper abdominal pain, unspecified
[2019-05-16] MEDS: ACETAMINOPHEN 325 MG TAB PO PRN (04:55)
[2019-05-16] MEDS: LEVOTHYROXINE SODIUM 75 MCG TABLET PO SCH (04:56)
[2019-05-16] MEDS: OXYCODONE HCL IR 5 MG TAB (IMMEDIATE RELEASE) PO PRN (04:56)
[2019-05-16] MEDS: SODIUM CHLORIDE 0.9% 1000ML 1,000 ML IV SCH ×2 (04:56→15:10)
[2019-05-16] MEDS: PANTOprazole 40 MG TAB PO SCH (08:22)
--- NOTE | 2019-05-16 14:44 | Hospitalist Progress Note ---
Date of Service May 16, 2019 Assessment & Plan (1) Abdominal pain: (2) S/P ERCP: (3) Elevated LFTs: (4) Post-ERCP acute pancreatitis: Was sent from GI after developing severe abdominal pain post Endoscopic retrograde cholangiopancreatography (ERCP) to investigate common bile duct stone as outpatient by Dr. Riaz Hairston Stone removed during ERCP. No stent deployed per ERCP report Lipase was 2210 on admission, then increased to 6761, dropped to 800's Liver enzymes back to normal Tolerated regular diet Pain improves significantly Follow up with Gastro (5) Hypokalemia: K stable (6) Acquired hypothyroidism: Continue home dose levothyroxine 75 mcg (7) History of sarcoidosis: Diagnosed by surgical lung biopsy 09/22/09 DVT prophylaxis:SCDs Disposition Discharge home today Follow up with your primary care provider Skyler Thomas on 05/20 @ 8:45 AM Follow up with Gastro Subjective Pt was seen and examined Walking in the hallway with no distress She said that pain improves She tolerated her diet She has a BM today Denies any chest pain, palpitation and SOB Physical Exam Physical Exam: General- No acute distress Head- atraumatic Eyes- PERRL, EOMI, ENT- oropharynx clear Neck- supple, no JVD Lungs- clear to auscultation Heart- regular rhythm; no murmur Abdomen- normal bowel sounds, +tender Extremities- no calf tenderness Neuro- alert, oriented x 3; PERRL, EOMI; no facial palsy; no dysarthria Skin- warm & dry Results & Data Vital Signs (Past 12 Hours) Vital Signs Temp Pulse Resp BP Pulse Ox 05/16/19 07:00 36.8 C 71 18 118/73 97 (1) Abdominal pain Abdominal location: upper abdomen, unspecified Qualified Code(s): R10.10 - Upper abdominal pain, unspecified
--- NOTE | 2019-05-27 07:46 | Discharge Summary ---
Date of Service May 16, 2019 Admission HPI Per Admitting Provider Maria Esther Youssef is a 48 year old female who on 05/10/19 is s/p Endoscopic retrograde cholangiopancreatography (ERCP) to investigate common bile duct stone as outpatient by Dr. Riaz Hairston at [facility], and because of greater than expect abdominal pain symptoms, the patient was sent to emergency room at [facility]. In the ED. Patient with upper abdominal pain. She reports that that the upper abdominal pain was after the ERCP and that previous to the ERCP the location of the pain was left sided abdomen. In the ED, Chest X ray and KUb were unremarkable. Patient does not have vomiting. Breathing on room air. No chest pain. No dizziness. No headache. No lightheadedness Admission Exam Per Admitting Provider Constitutional: cooperative Eyes: PERRL, conjunctivae normal, anicteric sclerae EOM intact bilaterally ENMT: external ear and nose normal, oropharynx normal Neck: normal visual inspection Respiratory: normal respiratory effort, lungs clear to auscultation Cardiovascular: RRR, no murmur, no edema Gastrointestinal: normal bowel sounds Percussion/Palpation: abdomen soft upper epigastric are of pain not made worse by palpation Head/Neck/Chest: normocephalic and head atraumatic Neurologic: PERRL, EOMI, accommodation nl, no face palsy, no dysarthria CN's II-XI intact bilaterally Psychiatric: A+Ox3, euthymic affect Principal Diagnosis (1) Abdominal pain: (2) S/P ERCP: (3) Elevated LFTs: (4) Post-ERCP acute pancreatitis: (5) Hypokalemia: (6) Acquired hypothyroidism: (7) History of sarcoidosis: Discharge Exam General- No acute distress Head- atraumatic Eyes- PERRL, EOMI, ENT- oropharynx clear Neck- supple, no JVD Lungs- clear to auscultation Heart- regular rhythm; no murmur Abdomen- normal bowel sounds, +tender Extremities- no calf tenderness Neuro- alert, oriented x 3; PERRL, EOMI; no facial palsy; no dysarthria Skin- warm & dry Discharge Data Allergies Allergy/AdvReac Type Severity Reaction Status Date / Time magnesium hydroxide Allergy Unknown swelling Verified 05/10/19 13:55 Consultations 05/10/19 13:35 ED Decision to Admit Stat 05/10/19 13:58 Consult Gastroenterology Routine Ordered Studies XR chest 2V PA/lateral HISTORY: 48 years-old Female pain s/p ercp ro perf acute upper abdominal pain status post ERCP COMPARISON: None available TECHNIQUE: PA and lateral views of the chest FINDINGS: Cardiac silhouette is upper limits of normal in size. Opacity of the right cardiophrenic angle suggests prominent epicardial fat pad. Postoperative changes of the right upper lung. No pneumothorax, large pleural effusion, overt pulmonary edema or focal airspace consolidation. Minimal scarring/atelectasis of the left lung base. The bones appear to be grossly intact. Surgical clips of the upper abdomen suggest cholecystectomy. IMPRESSION: No acute process. The above report was generated using voice recognition software. It may contain grammatical, syntax or spelling errors. Electronically signed by: Hilario Webb M.D. 05/10/2019 1:12 PM Dictated: 05/10/19 1310 Transcribed: 05/10/19 1310 XR KUB/Abdomen 1 view CLINICAL HISTORY: abdominal pain pain COMPARISON STUDY: No previous studies for comparison. FINDINGS: The soft tissues, psoas shadows, renal outlines and intestinal gas pattern appear normal. There is no evidence for bowel obstruction. No abnormal abdominal calcifications are seen. IMPRESSION: Normal study. The above report was generated using voice recognition software. It may contain grammatical, syntax or spelling errors. Electronically signed by: Pietro Hansen M.D. 05/10/2019 1:45 PM Dictated: 05/10/19 1345 Transcribed: 05/10/19 1345 Hospital Course (1) Abdominal pain: -as per the gastroenterology service Dr. Hairston patient should be on IV fluids of normal saline 150 cc/hr. Avoid lactate ringers solution due to magnesium hydroxide allergy as per Dr. Hairston -trend lipase and liver function enzymes -In the ED. Patient with upper abdominal pain. She reports that that the upper abdominal pain was after the ERCP and that previous to the ERCP the location of the pain was left sided abdomen. In the ED, Chest X ray and KUb were unremarkable. -pain control medications prn -antiemetics prn -will request formal inpatient gastroenterology consult to follow the patient with hospitalist medical service (2) S/P ERCP: Maria Esther Youssef is a 48 year old female who on 05/10/19 is s/p Endoscopic retrograde cholangiopancreatography (ERCP) to investigate common bile duct stone as outpatient by Dr. Riaz Hairston at [facility], and because of greater than expect abdominal pain symptoms, the patient was sent to emergency room at [facility]. (3) Elevated LFTs: (4) Post-ERCP acute pancreatitis: Was sent from GI after developing severe abdominal pain post Endoscopic retrograde cholangiopancreatography (ERCP) to investigate common bile duct stone as outpatient by Dr. Riaz Hairston Stone removed during ERCP. No stent deployed per ERCP report Lipase was 2210 on admission, then increased to 6761, dropped to 800's Liver enzymes back to normal Tolerated regular diet Pain improves significantly Follow up with Gastro (5) Hypokalemia: K stable (6) Acquired hypothyroidism: Continue home dose levothyroxine 75 mcg (7) History of sarcoidosis: Diagnosed by surgical lung biopsy 09/22/09 DVT prophylaxis:SCDs Disposition Discharge home today Follow up with your primary care provider Skyler Thomas on 05/20 @ 8:45 AM Follow up with Gastro Total Time Total Time Spent Total Time Spent (In Minutes): 35 minutes Total Time Includes: Examination of the Patient, Discharge Planning, Medication Reconciliation, Communication With Other Providers and Other Discharge Plan Discharge Items Patient Disposition: Home - Self-Care Reason For Visit: S/P ERCP ABDOMINAL PAIN Discharge Diagnosis: (1) Abdominal pain: (2) S/P ERCP: (3) Elevated LFTs: (4) Post-ERCP acute pancreatitis: (5) Hypokalemia: (6) Acquired hypothyroidism: (7) History of sarcoidosis: Activity: Resume your previous activity Activity Comment: As tolerated Non-emergency contact: Primary Care Provider and Procurement Representative Call non-emergency contact if: you have any medication questions, your symptoms worsen and your pain is not controlled Follow-up/Referrals: Kalen Thomas PA-C [Primary Care Provider] - Diet: Regular Addtl Attending Provider Instructions: Follow up with your primary care provider Skyler Thomas on 05/20 @ 8:45 AM Follow up with your Gastroenterology Advanced diet as tolerated Pending Studies at Discharge: No Stand-Alone Forms: Call Back Authorization, My [facility], Smoking Cessation Medications and DC Order Prescriptions: Continued levothyroxine 75 mcg tablet 75 mcg PO QAM RF: 0 dicyclomine 20 mg tablet 20 mg PO TID PRN (Reason: Cramps) RF: 0 diphenhydramine HCl [Benadryl] 25 mg Capsule 25 mg PO HS RF: 0 omeprazole 20 mg capsule,delayed release(DR/EC) 20 mg PO DAILY PRN (Reason: Acid Reflux) RF: 0 melatonin 10 mg Tablet 10 mg PO HS RF: 0 Discharge Orders: Discharge Order (Routine); Ordered 05/16/19 Ordered By: Eduard Han/Other Patient Handouts: ERCP, Pancreatitis, Hypokalemia Dc, Diet High Potassium Dc, Sarcoidosis Pulmonary, Liver Panel, Potassium Admission Data Admit Date/Time: 05/11/19 16:58 Attending Provider: Eduard Sheehan Admit Provider: Michael Alves Primary Care Provider: Kalen Thomas Other Providers: Michael Alves ; Eduard Diallo ; Keily Mitchell I. Other Interventions: Discharge Summary Assessment (RN) Last Done: 05/16/19 15:06 DC Date/Time DO NOT enter until pt leaves facility: 05/16/19 15:37
== END 2019-05-16 15:37 | disposition home or self-care (01) | DRG 393 ==
LOC: ED 12:35 → 3W 12:35 → SUATTDRO 14:04 → 3W 15:21 → SUATTDRO 05-11 16:58